=== PATIENT | female | born 1995 | race Caucasian/White ===

== ENCOUNTER 2018-12-08 05:38 | Day surgery (SDC) | payer MEDICAID ==
[~2018-12-08] VITALS: Ht 172.7 cm; Wt 122.5 kg
[2018-12-08] MEDS ORDERED: LACTATED RINGERS 1,000 ML IV SCH (06:30)
[2018-12-08 06:59] LABS: HCG SCREEN NEGATIVE
[2018-12-08] MEDS ORDERED: MORPHINE SULFATE/PF 1MG/ML 10ML AMP ONE (07:06)
[2018-12-08] MEDS ORDERED: BUPIVACAINE/EPINEPH/PF 0.25%/0.0005 10ML ONE (07:06)
[2018-12-08] MEDS ORDERED: EPINEPHRINE 1:1000 1 MG/ML AMP ONE (07:07)
[2018-12-08] MEDS ORDERED: FENTANYL CITRATE/PF 50MCG/ML 2ML VIAL ONE ×2 (07:54→08:26)
[2018-12-08] MEDS ORDERED: PROPOFOL 200MG/20ML VIAL IV ONE (07:54)
[2018-12-08] MEDS ORDERED: MIDAZOLAM HCL 2 MG/2 ML VIAL ONE (07:55)
[2018-12-08] MEDS ORDERED: LIDOCAINE HCL/PF 1% 10 MG/ML 5ML VIAL ONE (07:55)
[2018-12-08] MEDS ORDERED: METOCLOPRAMIDE HCL 10MG/2ML VIAL ONE (07:55)
[2018-12-08] MEDS ORDERED: GLYCOPYRROLATE 0.2 MG/ML 2ML VIAL ONE (07:55)
[2018-12-08] MEDS ORDERED: SUCCINYLCHOLINE CHLORIDE 200MG/10ML IV ONE (07:55)
[2018-12-08] MEDS ORDERED: ONDANSETRON HCL 4MG/2ML INJ ONE (07:55)
[2018-12-08] MEDS ORDERED: SODIUM CHLORIDE 0.9% 1,000 ML IV ONE (09:21)
[2018-12-08] MEDS ORDERED: MEPERIDINE HCL/PF 25MG/ML CPJ IV PRN (09:30)
[2018-12-08] MEDS ORDERED: ONDANSETRON HCL 4MG/2ML INJ IV PRN (09:30)
[2018-12-08] MEDS ORDERED: MORPHINE SULFATE 4 MG/ML CPJ (NOT FOR IM USE) IV PRN (09:30)
[2018-12-08] MEDS ORDERED: HYDROCODONE/ACETAMINOPHEN 10/325MG TABLET PO PRN (09:45)
[2018-12-08] MEDS: HYDROMORPHONE HCL/PF 2MG/ML CPJ IV PRN ×2 (09:52→10:02)
[2018-12-08 10:02] VITALS: BP 116/64
== END 2018-12-08 11:15 | disposition home or self-care (01) ==
LOC: OR 05:38
PROVIDERS: ATTEND Orthopaedic Surgery
DX: M94.262 Chondromalacia, left knee (principal); M65.862 Other synovitis and tenosynovitis, left lower leg; M65.9 Synovitis and tenosynovitis, unspecified
CPT/HCPCS: 29876; 84703; 88304; 88311; 97116; 97161; J0171; J0330; J1170; J2250; J2274; J2405; J2704; J2765; J3010; J3490